=== PATIENT | female | born 1975 | race Caucasian/White ===

== ENCOUNTER 2017-06-18 23:00 | Emergency (ER) | payer OTHER ==
[2017-06-18 23:39] VITALS: TEMP 97.9; BMI 39.4
--- NOTE | 2017-06-18 23:49 | PDOC ---
History of Present Illness - General History Source: Patient Exam Limitations: No Limitations - History of Present Illness Initial Comments: 06/19/17 00:45 The patient is a 41 year old female with a significant PMH of anemia, GERD, endometriosis, sinusitis, and hernia who presents to the emergency department with complaints of abdominal pain, bloating and dysuria since 2PM today. The patient describes the abdominal pain as constant and diffuse. The patient states that lying down on either side does not alleviate her abdominal pain. The patient reports she has not had any bowel movements today. The patient denies chest pain, shortness of breath, headache and dizziness. Denies fever, chills, nausea, vomit, diarrhea and constipation. Denies frequency, urgency and hematuria. Allergies: NKA Past surgical history: hysterectomy Social history: No reported alcohol, cigarette or drug use. <Zully Castillo - Last Filed: 06/19/17 02:50> <Adriana Parsons - Last Filed: 06/19/17 07:09> - General Chief Complaint: Pain, Acute Stated Complaint: ABDOMINAL PAIN Time Seen by Provider: 06/18/17 23:42 Past History <Zully Castillo - Last Filed: 06/19/17 02:50> - Past Medical History Anemia: Yes Asthma: No Cancer: No Cardiac Disorders: No CVA: No COPD: No CHF: No Dementia: No Diabetes: No GI Disorders: Yes (REFLUX; GERD) Disorders: No HTN: Yes (BORDERLINE AT TIMES) Hypercholesterolemia: No Liver Disease: No Seizures: No Thyroid Disease: No - Surgical History Abdominal Surgery: No Appendectomy: No Cardiac Surgery: No Cholecystectomy: No Lung Surgery: No Neurologic Surgery: No Orthopedic Surgery: No - Suicide/Smoking/Psychosocial Hx Smoking History: Never smoked Have you smoked in the past 12 months: Yes Number of Cigarettes Smoked Daily: 5 'Breaking Loose' booklet given: 09/11/13 Hx Alcohol Use: Yes (SOCIAL) Drug/Substance Use Hx: No Substance Use Type: Alcohol Hx Substance Use Treatment: No <Adriana Parsons - Last Filed: 06/19/17 07:09> - Past Medical History Allergies/Adverse Reactions: Allergies Allergy/AdvReac Type Severity Reaction Status Date / Time No Known Drug Allergies Allergy Verified 06/18/17 23:36 Home Medications: Ambulatory Orders Ascorbic Acid [Vitamin C] 500 mg PO DAILY 01/19/12 Chlorthalidone 25 mg PO PRN PRN 01/19/12 Ferrous Sulfate [Iron] 325 mg PO DAILY 01/19/12 Cholecalciferol (Vitamin D3) [Vitamin D] 1,000 unit PO DAILY 09/11/13 Docusate Sodium [Colace -] 100 mg PO DAILY PRN 09/11/13 Famotidine [Pepcid -] 20 mg PO BID 09/11/13 Lipase/Protease/Amylase [Pancrease EC Capsule] 1 each PO TID 09/11/13 Review of Systems - Review of Systems Able to Perform ROS?: Yes Comments:: 06/19/17 00:47 GENERAL/CONSTITUTIONAL: No fever or chills. No weakness. HEAD, EYES, EARS, NOSE AND THROAT: No change in vision. No ear pain or discharge. No sore throat. CARDIOVASCULAR: No chest pain or shortness of breath. RESPIRATORY: No cough, wheezing, or hemoptysis. GASTROINTESTINAL: (+) Abdominal pain. No nausea, vomiting, diarrhea or constipation. GENITOURINARY: (+) Dysuria. No frequency. MUSCULOSKELETAL: No joint or muscle swelling or pain. No neck or back pain. SKIN: No rash NEUROLOGIC: No headache, vertigo, loss of consciousness, or change in strength/ sensation. ENDOCRINE: No increased thirst. No abnormal weight change. HEMATOLOGIC/LYMPHATIC: No anemia, easy bleeding, or history of blood clots. ALLERGIC/IMMUNOLOGIC: No hives or skin allergy. <Zully Castillo - Last Filed: 06/19/17 02:50> *Physical Exam - Vital Signs Last Vital Signs Temp Pulse Resp BP Pulse Ox 97.9 F 76 20 160/75 99 06/18/17 23:37 06/18/17 23:37 06/18/17 23:37 06/18/17 23:37 06/18/17 23:37 - Physical Exam Comments: 06/19/17 00:48 ADULT EXAM GENERAL: Awake, alert, and fully oriented, in no acute distress HEAD: No signs of trauma EYES: PERRLA, EOMI, sclera anicteric, conjunctiva clear ENT: Auricles normal inspection, hearing grossly normal, nares patent, oropharynx clear without exudates. Moist mucosa NECK: Normal ROM, supple, no lymphadenopathy, JVD, or masses LUNGS: Breath sounds equal, clear to auscultation bilaterally. No wheezes, and no crackles HEART: Regular rate and rhythm, normal S1 and S2, no murmurs, rubs or gallops ABDOMEN: (+) Enlarged ventral hernia. (+) Suprapubic tenderness. Soft and normoactive bowel sounds. No guarding, no rebound. No masses EXTREMITIES: Normal range of motion, no edema. No clubbing or cyanosis. No cords , erythema, or tenderness NEUROLOGICAL: Cranial nerves II through XII grossly intact. Normal speech, normal gait SKIN: Warm, Dry, normal turgor, no rashes or lesions noted. <Zully Castillo - Last Filed: 06/19/17 02:50> - Vital Signs Last Vital Signs Temp Pulse Resp BP Pulse Ox 97.9 F 76 20 160/75 99 06/18/17 23:37 06/18/17 23:37 06/18/17 23:37 06/18/17 23:37 06/18/17 23:37 <Adriaan Parsons - Last Filed: 06/19/17 07:09> ED Treatment Course - LABORATORY CBC & Chemistry Diagram: 06/19/17 00:46 06/19/17 00:46 <Zully Castillo - Last Filed: 06/19/17 02:50> - LABORATORY CBC & Chemistry Diagram: 06/19/17 00:46 06/19/17 00:46 <Adriana Parsons - Last Filed: 06/19/17 07:09> Medical Decision Making - Medical Decision Making 06/19/17 05:50 Patient Name: RJ WILLOUGHBY THIS IS A PRELIMINARY REPORT FROM [facility] DATE OF SERVICE: 2017-06-19 04:13:40 IMAGES: [id number] EXAM: CT ABDOMEN AND PELVIS with gastrointestinal contrast HISTORY: Ileus COMPARISON: None. FINDINGS: Abdomen Liver: Normal Spleen: Normal Pancreas: Normal Gallbladder: Normal Stomach: Normal Small bowel: Normal Large bowel: Normal Appendix: Normal Adrenals:Normal Kidneys: Normal Vascular: Normal Lymphatic: Normal Peritoneal: No free peritoneal air or fluid Pelvis: Uterus: There are low-attenuation uterine masses suggesting uterine fibroids Rectum: Normal Bladder: Normal The inferior thorax: Normal General: Skeletal: Normal Abdominal wall: Normal IMPRESSION: Fibroid uterus THIS DOCUMENT HAS BEEN ELECTRONICALLY SIGNED 06/19/17 07:07 Pt has lower abd pain. She has a large ventral ghernia and she is obese and it is impossible for me to say whether she has colitis without imaging. CT scan is normal. UA shows UTI Labs normal. She will be treated with macrobid and asked to follow with PMD <Adriana Parsons - Last Filed: 06/19/17 07:09> *DC/Admit/Observation/Transfer - Attestations Scribe Attestion: 06/19/17 00:51 Documentation prepared by Zully Castillo, acting as medical field representative for Adriana Parsons MD. <Zully Castillo - Last Filed: 06/19/17 02:50> - Discharge Dispostion Admit: No <Adriana Parsons - Last Filed: 06/19/17 07:09> Diagnosis at time of Disposition: UTI (urinary tract infection) - Discharge Dispostion Disposition: HOME Condition at time of disposition: Stable - Patient Instructions Printed Discharge Instructions: Urinary Tract Infection
[2017-06-19] MEDS ORDERED: SODIUM CHLORIDE 0.9% 500 ML INFUS.BAG IV ONE (00:26)
[2017-06-19 00:54] LABS: BASO # 0.1 # (0.1-1); BASO % 0.7 % (0-2.0); EOS # 0.1 # (0-4.5); EOS % 0.7 % (0-4.5); LYMPH # 1.4 (8-40); MCH 32.4 pg (25.7-33.7); MCHC 34.5 g/dl (32.0-36.0); MEAN CELL VOLUME 93.8 fl (80-96); MEAN PLT VOLUME 6.9 fl (7.5-11.1); MONO # 0.4 # (3.8-10.2); NEUT # 5.8 # (42.8-82.8); NEUT % 75.4 % (42.8-82.8); PLATELET COUNT 351 K/MM3 (134-434); RDW 12.5 % (11.6-15.6); WHITE BLOOD COUNT 7.6 K/mm3 (4.0-10.0)
[2017-06-19 00:56] LABS: URINE APPEARANCE SLCLOUDY; URINE BILIRUBIN NEGATIVE (NEGATIVE); URINE BLOOD NEGATIVE (NEGATIVE); URINE COLOR YELLOW; URINE GLUCOSE (UA) NEGATIVE (NEGATIVE); URINE KETONE TRACE (NEGATIVE); URINE LEUK ESTERASE NEGATIVE (NEGATIVE); URINE NITRITE POSITIVE (NEGATIVE); URINE PROTEIN NEGATIVE (NEGATIVE)
[2017-06-19 01:02] LABS: URINE BACTERIA FEW /hpf (NONE SEEN); URINE MUCUS MANY; URINE RBC 2 /hpf (0-3); URINE WBC 2 /hpf (3-5)
[2017-06-19 01:29] LABS: ALBUMIN 3.6 g/dl (3.4-5.0); ALK PHOS 77 U/L (45-117); AMYLASE 56 U/L (25-115); ANION GAP 10 (8-16); BILIRUBIN,TOTAL 0.4 mg/dL (0.2-1.0); CALCIUM 8.9 mg/dL (8.5-10.1); CO2 24 mmol/L (21-32); CREATININE 0.6 mg/dL (0.55-1.02); GLUCOSE,RANDOM 140 mg/dL (74-106); SGPT/ALT 118 U/L (12-78); TOT PROT 7.5 g/dl (6.4-8.2)
[2017-06-19] MEDS ORDERED: NITROFURANTOIN MACROCRYSTAL 50 MG CAPSULE (FP) PO SCH (01:30)
[2017-06-19 01:31] LABS: SGOT/AST 105 U/L (15-37)
[2017-06-19 05:49] VITALS: BP 158/89; PULSE 72
[2017-06-19] MEDS ORDERED: NITROFURANTOIN MACROCRYSTAL 50 MG CAPSULE (FP) ONE (05:51)
[2017-06-19 14:15] LABS: URINE LEUK ESTERASE Negative (NEGATIVE)
== END 2017-06-19 05:54 | disposition home or self-care (01) ==
LOC: JER 23:00
DX: N39.0 Urinary tract infection, site not specified (principal); K43.9 Ventral hernia without obstruction or gangrene; D25.9 Leiomyoma of uterus, unspecified; I10 Essential (primary) hypertension; K21.9 Gastro-esophageal reflux disease without esophagitis
CPT/HCPCS: 36415; 74176-TC; 80053; 81003; 81015; 82150; 83690; 85025; 99282-25